=== PATIENT | female | born 1940 | race African-American/Black ===

== ENCOUNTER 2017-02-25 13:02 | Emergency (ER) | payer MEDICARE ==
[~2017-02-25] VITALS: Ht 167.6 cm; Wt 63.5 kg
[~2017-02-25 13:02] MED LIST: AMLO5TAB2 PO; MET50T PO
[2017-02-25] MEDS ORDERED: SILVER SULFADIAZINE 1 % TOPICAL CREAM 50GM TOP ONE (19:45)
[2017-02-25 21:45] VITALS: BP 139/88
== END 2017-02-25 22:03 | disposition home or self-care (01) ==
LOC: EDBD 13:02 → ER 13:07
DX: T22.10XA Burn of first degree of shoulder and upper limb, except wrist and hand, unspecified site, initial encounter (principal); T21.12XA Burn of first degree of abdominal wall, initial encounter; E11.9 Type 2 diabetes mellitus without complications; I10 Essential (primary) hypertension; Z86.73 Personal history of transient ischemic attack (TIA), and cerebral infarction without residual deficits; X12.XXXA Contact with other hot fluids, initial encounter; Y93.89 Activity, other specified; Y92.89 Other specified places as the place of occurrence of the external cause; Y99.8 Other external cause status
CPT/HCPCS: 16000; 93005

== ENCOUNTER 2017-03-17 00:49 | Inpatient (IN) | payer MEDICARE ==
[~2017-03-17] VITALS: Ht 157.5 cm; Wt 63.7 kg
[2017-03-17] MEDS ORDERED: NITROGLYCERIN 50MG/250ML 250 ML IV ONE (06:45)
[2017-03-17] MEDS ORDERED: NITROGLYCERIN 0.4 MG SL TAB SL ONE ×3 (07:00→08:15)
[2017-03-17] MEDS ORDERED: HEPARIN SODIUM (PORCINE) 5000 UNITS/ML 1ML VIAL SC ONE (07:00)
[2017-03-17] MEDS ORDERED: ASPirin 325 MG TAB PO ONE (07:00)
[2017-03-17] MEDS ORDERED: HEPARIN SODIUM (PORCINE) 5000 UNITS/ML 1ML VIAL IV ONE (07:15)
[2017-03-17 08:24] LABS: Basophils # (auto) 0 uL; Eosinophils # (auto) 0 uL; Eosinophils % (auto) 1.5 % (0.0-7.0); Hematocrit 43.6 % (36.0-46.0); Hemoglobin 14.1 g/dL (12.2-16.2); Lymphocytes # (auto) 0.9 uL; Lymphocytes % (auto) 27.6 % (10.0-50.0); Mean Corpuscular Hemoglobin 28.2 pg (28.0-32.0); Mean Corpuscular Hgb Conc. 32.4 g/dL (32.0-36.0); Mean Corpuscular Volume 87.1 fL (80.0-100.0); Monocytes # (auto) 0.2 uL; Monocytes % (auto) 7.8 % (0.0-12.0); Neutrophils # (auto) 1.9 uL; Neutrophils % (auto) 62.1 % (37.0-80.0); Nucleated Red Blood Cells % 0.1 %; Platelet Count (auto) 226 10^3/uL (140-450); Red Blood Cells 5.01 10^6/uL (4.0-5.20); White Blood Cell 3.1 10^3/uL (4.4-10.8)
[2017-03-17] MEDS ORDERED: LABETALOL HCL 5 MG/ML ML 20ML VIAL IV ONE (08:45)
[2017-03-17] MEDS ORDERED: SODIUM CHLORIDE 0.9% 1,000 ML IV ONE (08:45)
[2017-03-17 08:50] LABS: INR 0.99 (0.9-1.15); Prothrombin Time 10.8 sec (9.37-12.3)
[2017-03-17] MEDS ORDERED: METOPROLOL SUCCINATE XL 50 MG TAB PO ONE (09:00)
[2017-03-17] MEDS ORDERED: NITROGLYCERIN 0.4MG/HR TOPICAL PATCH TD ONE (09:00)
[2017-03-17] MEDS ORDERED: ONDANSETRON HCL 4 MG/2 ML VIAL IV PRN (10:15)
[2017-03-17] MEDS ORDERED: MORPHINE SULFATE 10 MG/ML INJ 1ML SDV IV PRN ×2 (10:15)
[2017-03-17] MEDS ORDERED: NITROGLYCERIN 0.4 MG SL TAB SL PRN (10:15)
[2017-03-17] MEDS ORDERED: DOCUSATE SOD 100 MG CAP PO PRN (10:15)
[2017-03-17] MEDS ORDERED: ACETAMINOPHEN 325 MG TAB PO PRN (10:15)
[2017-03-17] MEDS ORDERED: TEMAZEPAM 15 MG CAP PO PRN (10:15)
[2017-03-17] MEDS ORDERED: HYDROcodone-ACET 5/325MG TAB PO PRN (10:15)
[2017-03-17] MEDS ORDERED: cloNIDine HCL 0.1 MG TAB PO PRN (10:30)
[2017-03-17] MEDS: SODIUM CHLORIDE 0.9% 1,000 ML IV SCH (11:03)
[2017-03-17 11:33] LABS: Albumin 3.6 g/dL (3.4-5.0); BUN/Creatinine Ratio 33.3; Bilirubin, Total 0.4 mg/dL (0.2-1.0); Calcium 9.3 mg/dL (8.5-10.1); Magnesium 2.2 mg/dL (1.6-2.6); Potassium 3.5 mmol/L (3.5-5.1); Total Protein 8.7 g/dL (6.4-8.2)
[2017-03-17] MEDS ORDERED: FAMO-12 PO (11:44)
[2017-03-17] MEDS ORDERED: APIX5TAB PO (11:44)
[2017-03-17] MEDS ORDERED: ATOR1TAB PO (11:44)
[2017-03-17] MEDS ORDERED: LEVO-28 PO (11:44)
[2017-03-17] MEDS: Boost Glucose Control 8 Ounces PO SCH ×2 (12:00→18:27)
[2017-03-17 15:07] VITALS: BP 165/96
[2017-03-17 17:21] VITALS: BP 169/103
[2017-03-17] MEDS: SUCRALFATE 1 GM/10 ML ORAL SUSP PO SCH ×2 (18:02→22:00)
[2017-03-17 18:24] LABS: Hematocrit 41.5 % (36.0-46.0); Hemoglobin 13.5 g/dL (12.2-16.2)
[2017-03-17 20:00] VITALS: BP 111/56
[2017-03-17 21:21] VITALS: BP 164/105
[2017-03-17] MEDS ORDERED: FAMOTIDINE 20 MG TAB PO SCH (22:00)
[2017-03-18] MEDS: SODIUM CHLORIDE 0.9% 1,000 ML IV SCH (02:50)
[2017-03-18 05:03] VITALS: BP 158/76
[2017-03-18] MEDS: SUCRALFATE 1 GM/10 ML ORAL SUSP PO SCH ×3 (06:30→17:00)
[2017-03-18 07:51] LABS: Basophils # (auto) 0 uL; Basophils % (auto) 1.2 % (0.0-2.0); Eosinophils # (auto) 0.1 uL; Eosinophils % (auto) 3.4 % (0.0-7.0); Hematocrit 36.5 % (36.0-46.0); Lymphocytes # (auto) 0.9 uL; Lymphocytes % (auto) 32.8 % (10.0-50.0); Mean Corpuscular Hemoglobin 28.5 pg (28.0-32.0); Mean Corpuscular Hgb Conc. 32.8 g/dL (32.0-36.0); Mean Corpuscular Volume 86.9 fL (80.0-100.0); Monocytes # (auto) 0.2 uL; Neutrophils # (auto) 1.5 uL; Neutrophils % (auto) 53.6 % (37.0-80.0); Nucleated Red Blood Cells % 0.2 %; Platelet Count (auto) 227 10^3/uL (140-450); Red Blood Cells 4.21 10^6/uL (4.0-5.20); Red Cell Distribution Width 14.9 % (11.8-14.3); White Blood Cell 2.7 10^3/uL (4.4-10.8)
[2017-03-18] MEDS: Boost Glucose Control 8 Ounces PO SCH ×2 (08:00→12:00)
[2017-03-18 08:37] LABS: Bilirubin, Total 0.4 mg/dL (0.2-1.0); Calcium 8.8 mg/dL (8.5-10.1); Potassium 3.5 mmol/L (3.5-5.1); Total Protein 7.3 g/dL (6.4-8.2)
[2017-03-18 09:16] VITALS: BP 147/84
[2017-03-18] MEDS ORDERED: amLODIPine BESYLATE 5 MG TAB PO SCH (10:00)
[2017-03-18] MEDS ORDERED: METOPROLOL SUCCINATE XL 50 MG TAB PO SCH (10:00)
[2017-03-18] MEDS ORDERED: PANTOPRAZOLE 40 MG TAB PO SCH (10:00)
[2017-03-18] MEDS ORDERED: MULTIPLE VITAMIN TAB PO SCH (10:00)
[2017-03-18] MEDS ORDERED: NITROGLYCERIN 0.4MG/HR TOPICAL PATCH TD SCH (10:00)
[2017-03-18 14:01] VITALS: BP 135/88
[2017-03-18 16:28] VITALS: BP 149/77
[2017-03-18 16:38] VITALS: BP 149/77
[2017-03-18 17:45] VITALS: BP 149/77
== END 2017-03-18 17:45 | disposition home health service (06) | DRG 377 ==
LOC: ER 00:49 → EDBD 00:49 → TELE 00:50 → TELE-CENTR 11:26
PROVIDERS: ADMIT Internal Medicine; ATTEND Internal Medicine
DX: K92.0 Hematemesis (principal); G93.41 Metabolic encephalopathy; L89.159 Pressure ulcer of sacral region, unspecified stage; E44.0 Moderate protein-calorie malnutrition; E11.21 Type 2 diabetes mellitus with diabetic nephropathy; D68.69 Other thrombophilia; E11.22 Type 2 diabetes mellitus with diabetic chronic kidney disease; R65.10 Systemic inflammatory response syndrome (SIRS) of non-infectious origin without acute organ dysfunction; I48.92 Unspecified atrial flutter; J98.11 Atelectasis; I69.351 Hemiplegia and hemiparesis following cerebral infarction affecting right dominant side; E11.51 Type 2 diabetes mellitus with diabetic peripheral angiopathy without gangrene; I48.91 Unspecified atrial fibrillation; N18.3 Chronic kidney disease, stage 3 (moderate); K21.9 Gastro-esophageal reflux disease without esophagitis; K42.9 Umbilical hernia without obstruction or gangrene; E83.41 Hypermagnesemia; T22.00XA Burn of unspecified degree of shoulder and upper limb, except wrist and hand, unspecified site, initial encounter; T21.02XA Burn of unspecified degree of abdominal wall, initial encounter; I70.0 Atherosclerosis of aorta; I70.90 Unspecified atherosclerosis; X08.8XXA Exposure to other specified smoke, fire and flames, initial encounter; I13.10 Hypertensive heart and chronic kidney disease without heart failure, with stage 1 through stage 4 chronic kidney disease, or unspecified chronic kidney disease; I70.201 Unspecified atherosclerosis of native arteries of extremities, right leg; Z86.711 Personal history of pulmonary embolism; Z68.25 Body mass index [BMI] 25.0-25.9, adult; Y93.89 Activity, other specified; Y92.89 Other specified places as the place of occurrence of the external cause; Y99.8 Other external cause status
CPT/HCPCS: 36415; 70450; 71045; 71111; 73502; 74176; 80053; 83036; 83735; 83880; 84443; 84484; 85014; 85018; 85025; 85610; 85730; 87040; 93005; 96361; 96374

== ENCOUNTER 2017-07-19 22:22 | Inpatient (IN) | payer MEDICARE, MEDICAID ==
[~2017-07-19] VITALS: Ht 154.9 cm; Wt 62.9 kg
[~2017-07-19 22:22] MED LIST changes: +APIX5TAB PO; +ATOR1TAB PO; +FAMO-12 PO; +LEVO-28 PO
[2017-07-20 00:48] LABS: Hematocrit 42.7 % (36.0-46.0); Hemoglobin 14.2 g/dL (12.2-16.2); Mean Corpuscular Hemoglobin 28.8 pg (28.0-32.0); Mean Corpuscular Hgb Conc. 33.2 g/dL (32.0-36.0); Mean Corpuscular Volume 86.7 fL (80.0-100.0); Platelet Count (auto) 209 10^3/uL (140-450); Red Blood Cells 4.92 10^6/uL (4.0-5.20); Red Cell Distribution Width 15.2 % (11.8-14.3); White Blood Cell 4.3 10^3/uL (4.4-10.8)
[2017-07-20 00:50] LABS: Band Neutrophils % (manual) 0; Basophils % (manual) 0 (0.0-2.0); Blast Cells 0; Metamyelocytes % 0; Myelocytes % 0; Promyelocytes % 0; Reactive Lymphocytes 0
[2017-07-20 01:00] LABS: Albumin 3.1 g/dL (3.4-5.0); Anion Gap 9 (5-15); BUN/Creatinine Ratio 34.1; Blood Urea Nitrogen 14 mg/dL (7-18); Calcium 8.7 mg/dL (8.5-10.1); Carbon Dioxide 21 mmol/L (21-32); Chloride 111 mmol/L (98-107); GFR African American 193 mL/min; GFR Non-African American 160 mL/min; Glucose 100 mg/dL (74-106); Magnesium 2.2 mg/dL (1.6-2.6); Potassium 3.3 mmol/L (3.5-5.1); Sodium 141 mmol/L (136-145)
[2017-07-20 01:02] LABS: Alanine Aminotransferase 11 U/L (13-56); Alkaline Phosphatase 71 U/L (45-117); Aspartate Aminotransferase 10 U/L (15-37); Bilirubin, Total 0.2 mg/dL (0.2-1.0); Total Protein 8.1 g/dL (6.4-8.2)
[2017-07-20 01:07] LABS: Eosinophils % (manual) 2 (0-7); Lymphocytes % (manual) 36 (10.0-50.0); Monocytes % (manual) 8 (0-12)
[2017-07-20 02:18] LABS: Urine Bacteria FEW /hpf (None Seen); Urine Blood Negative /uL (Negative); Urine Mucus FEW (None Seen); Urine Specific Gravity 1.015 (1.001-1.035); Urine WBC 145 /hpf (0 - 5)
[2017-07-20 03:01] LABS: INR 0.98 (0.9-1.15); Partial Thromboplastin Time 27.8 sec (23.78-33.04); Prothrombin Time 10.5 sec (9.27-12.13)
[2017-07-20] MEDS ORDERED: ONDANSETRON HCL 4 MG/2 ML VIAL IV PRN (06:45)
[2017-07-20] MEDS ORDERED: LORazepam 2MG/ML-1ML VIAL IV PRN (06:45)
[2017-07-20] MEDS ORDERED: ACETAMINOPHEN 500 MG TAB PO PRN (06:45)
[2017-07-20] MEDS ORDERED: POTASSIUM CHL 10% (20 MEQ/15ML) 15ml ORAL SOLN PO ONE (06:45)
[2017-07-20] MEDS ORDERED: cefTRIAXone 1GM/10ml IVPUSH 10 ML IV ONE (08:00)
[2017-07-20] MEDS: ENOXAPARIN SOD 40 MG/0.4 ML SYRINGE SC SCH (12:22)
[2017-07-20] MEDS ORDERED: cloNIDine HCL 0.1 MG TAB PO ONE (12:30)
[2017-07-20 13:00] VITALS: BP 173/87
[2017-07-20] MEDS: HYDROcodone-ACET 5/325MG TAB PO PRN (13:21)
[2017-07-20] MEDS ORDERED: AMLO5TAB2 PO (15:10)
[2017-07-20] MEDS ORDERED: PANT40TA2 PO (15:10)
[2017-07-20] MEDS ORDERED: MET50T PO (15:10)
[2017-07-20] MEDS ORDERED: SUCR1TAB38 PO (15:10)
[2017-07-20] MEDS ORDERED: cloNIDine HCL 0.1 MG TAB PO PRN (15:15)
[2017-07-20 17:00] VITALS: BP 131/71
[2017-07-20 22:00] VITALS: BP 113/66
[2017-07-20] MEDS: METOPROLOL TARTRATE 50 MG TAB PO SCH (22:46)
[2017-07-21 05:08] VITALS: BP 137/73
[2017-07-21 05:57] LABS: Basophils # (auto) 0 uL; Basophils % (auto) 1.4 % (0.0-2.0); Eosinophils # (auto) 0.1 uL; Eosinophils % (auto) 3.7 % (0.0-7.0); Hematocrit 40.1 % (36.0-46.0); Hemoglobin 13.3 g/dL (12.2-16.2); Lymphocytes # (auto) 1.1 uL; Lymphocytes % (auto) 39.6 % (10.0-50.0); Mean Corpuscular Hgb Conc. 33.1 g/dL (32.0-36.0); Mean Corpuscular Volume 87.6 fL (80.0-100.0); Monocytes # (auto) 0.2 uL; Monocytes % (auto) 6.8 % (0.0-12.0); Neutrophils # (auto) 1.3 uL; Neutrophils % (auto) 48.5 % (37.0-80.0); Nucleated Red Blood Cells % 0.2 %; Platelet Count (auto) 231 10^3/uL (140-450); Red Blood Cells 4.58 10^6/uL (4.0-5.20); Red Cell Distribution Width 15.2 % (11.8-14.3); White Blood Cell 2.7 10^3/uL (4.4-10.8)
[2017-07-21] MEDS: METOPROLOL TARTRATE 50 MG TAB PO SCH ×2 (08:54→22:33)
[2017-07-21] MEDS: cefTRIAXone 1GM/10ml IVPUSH 10 ML IV SCH (08:54)
[2017-07-21] MEDS: ENOXAPARIN SOD 40 MG/0.4 ML SYRINGE SC SCH (08:54)
[2017-07-21 09:00] VITALS: BP 140/70
[2017-07-21] MEDS: HYDROcodone-ACET 5/325MG TAB PO PRN (12:49)
[2017-07-21 13:00] VITALS: BP 135/68
[2017-07-21 17:00] VITALS: BP 161/79
[2017-07-21 22:18] VITALS: BP 100/59
[2017-07-22 05:00] VITALS: BP 104/57
[2017-07-22] MEDS: cefTRIAXone 1GM/10ml IVPUSH 10 ML IV SCH (08:26)
[2017-07-22] MEDS: HYDROcodone-ACET 5/325MG TAB PO PRN (08:26)
[2017-07-22 09:23] VITALS: BP 134/77
[2017-07-22] MEDS: ENOXAPARIN SOD 40 MG/0.4 ML SYRINGE SC SCH (10:00)
[2017-07-22] MEDS: METOPROLOL TARTRATE 50 MG TAB PO SCH (10:42)
[2017-07-22 13:59] VITALS: BP 163/89
[2017-07-22 14:23] VITALS: BP 134/77
== END 2017-07-22 15:30 | disposition home or self-care (01) | DRG 690 ==
LOC: EDBD 22:22 → ER 22:30 → OVERFLOW 22:31 → WEST WING 07-20 10:10
PROVIDERS: ADMIT Nurse Practitioner Family; ATTEND Nurse Practitioner Family
DX: N39.0 Urinary tract infection, site not specified (principal); E11.22 Type 2 diabetes mellitus with diabetic chronic kidney disease; I48.91 Unspecified atrial fibrillation; I69.351 Hemiplegia and hemiparesis following cerebral infarction affecting right dominant side; E86.0 Dehydration; I69.320 Aphasia following cerebral infarction; I12.9 Hypertensive chronic kidney disease with stage 1 through stage 4 chronic kidney disease, or unspecified chronic kidney disease; E87.6 Hypokalemia; K21.9 Gastro-esophageal reflux disease without esophagitis; N18.9 Chronic kidney disease, unspecified; Z79.01 Long term (current) use of anticoagulants; Z79.84 Long term (current) use of oral hypoglycemic drugs; Z86.711 Personal history of pulmonary embolism; Z80.3 Family history of malignant neoplasm of breast
CPT/HCPCS: 36415; 51702; 70450; 71045; 80053; 81001; 83735; 83880; 84484; 85007; 85025; 85027; 85379; 85610; 85730; 87040; 87086; 87088; 87186; 93005; 96374

== ENCOUNTER 2018-12-10 08:00 | Inpatient (IN) | payer MEDICARE, MEDICAID ==
[~2018-12-10] VITALS: Ht 162.6 cm; Wt 79.1 kg
[~2018-12-10 08:00] MED LIST changes: +AMLO5TAB15 PO; -AMLO5TAB2 PO; -ATOR1TAB PO; -FAMO-12 PO; -LEVO-28 PO; +PANT40TA2 PO; +SUCR1TAB38 PO
[2018-12-10] MEDS ORDERED: SODIUM CHLORIDE 0.9% 1,000 ML IV ONE ×3 (08:39→17:15)
[2018-12-10] MEDS ORDERED: ASPirin 81 mg TAB PO ONE (08:45)
[2018-12-10 08:54] LABS: Basophils # (auto) 0 uL; Basophils % (auto) 0.7 % (0.0-2.0); Eosinophils # (auto) 0 uL; Eosinophils % (auto) 0.3 % (0.0-7.0); Hematocrit 49.8 % (36.0-46.0); Hemoglobin 16.3 g/dL (12.2-16.2); Lymphocytes # (auto) 0.8 uL; Lymphocytes % (auto) 15.6 % (10.0-50.0); Mean Corpuscular Hemoglobin 28.5 pg (28.0-32.0); Mean Corpuscular Hgb Conc. 32.8 g/dL (32.0-36.0); Mean Corpuscular Volume 86.9 fL (80.0-100.0); Monocytes # (auto) 0.3 uL; Monocytes % (auto) 5.9 % (0.0-12.0); Neutrophils # (auto) 3.9 uL; Neutrophils % (auto) 77.5 % (37.0-80.0); Nucleated Red Blood Cells % 0.1 %; Platelet Count (auto) 279 10^3/uL (140-450); Red Blood Cells 5.73 10^6/uL (4.0-5.20); Red Cell Distribution Width 15.3 % (11.8-14.3); White Blood Cell 5.1 10^3/uL (4.4-10.8)
[2018-12-10 09:07] LABS: Alanine Aminotransferase 11 U/L (13-56); Albumin 3.6 g/dL (3.4-5.0); Anion Gap 6 (5-15); Aspartate Aminotransferase 10 U/L (15-37); Blood Urea Nitrogen 13 mg/dL (7-18); Calcium 9.9 mg/dL (8.5-10.1); Carbon Dioxide 26 mmol/L (21-32); Chloride 104 mmol/L (98-107); Glucose 139 mg/dL (74-106); Potassium 4.1 mmol/L (3.5-5.1); Sodium 136 mmol/L (136-145)
[2018-12-10 09:12] LABS: Alkaline Phosphatase 83 U/L (45-117); Bilirubin, Total 0.5 mg/dL (0.2-1.0); GFR African American 120 mL/min; GFR Non-African American 99 mL/min; Total Protein 9.3 g/dL (6.4-8.2)
[2018-12-10 09:29] LABS: Urine Bacteria FEW /hpf (None Seen); Urine Blood 1+ /uL (Negative); Urine Mucus FEW (None Seen); Urine Specific Gravity 1.021 (1.001-1.035); Urine WBC 933 /hpf (0 - 5); Urine WBC Clumps PRESENT /hpf (None Seen)
[2018-12-10] MEDS: cloNIDine 0.2 mg/24hr 7DAY PATCH TD ONE ×2 (09:45→11:02)
[2018-12-10] MEDS ORDERED: LABETALOL HCL 5 MG/ML ML 20ML VIAL IV ONE ×2 (09:45→09:49)
[2018-12-10 10:32] LABS: INR 0.97 (0.9-1.15); Partial Thromboplastin Time 28.6 sec (23.64-32.05)
[2018-12-10] MEDS ORDERED: hydrALAZINE HCL 20 MG/ML VL ONE (11:52)
[2018-12-10] MEDS ORDERED: hydrALAZINE HCL 20 MG/ML VL IV ONE (12:00)
[2018-12-10] MEDS ORDERED: LORazepam 2MG/ML-1ML VIAL ONE (12:05)
[2018-12-10] MEDS: LORazepam 2MG/ML-1ML VIAL IV ONE ×2 (12:22→12:23)
[2018-12-10] MEDS ORDERED: cefTRIAXone 1GM/50ML D5W 50 ML IV ONE (14:00)
[2018-12-10] MEDS: SODIUM CHLORIDE 0.9% 1,000 ML IV SCH ×2 (16:40→17:16)
[2018-12-10] MEDS ORDERED: NITROGLYCERIN 0.4 MG SL TAB SL PRN (16:45)
[2018-12-10] MEDS ORDERED: HYDROcodone-ACET 5/325MG TAB PO PRN (16:45)
[2018-12-10] MEDS ORDERED: MORPHINE SULF INJ 2 MG/ML SYRINGE 1ML IV PRN ×2 (16:45)
[2018-12-10] MEDS ORDERED: ONDANSETRON HCL 4 MG/2 ML VIAL IV PRN (16:45)
[2018-12-10] MEDS ORDERED: ACETAMINOPHEN 500 MG TAB PO PRN (16:45)
[2018-12-10 20:50] VITALS: BP 131/78
--- NOTE | 2018-12-10 20:50 | NUR ---
Telemetry admit from ER WERNER ROBERTS admitted to Telemetry; SBAR received after this RN called ER. Patient presenting with ALOC; unresponsive to voice, gentle touch or sternal rub. Pt's VS are WNL and respiratory effort WNL with HOB in semi-Serna's position Unabled to orient pt to unit or surroundings. Sitter at bedside. Patient now on continuous telemetry monitoring, tele box #51 and telemetry reading on arrival to unit is sinus arrythmia in low 70s. Patient placed on bedside oxygen @ 2lpm, weighed by bedscale. Bed in low position and locked. Pt arrived with mittens on both hands.
[2018-12-10] MEDS: METOPROLOL TARTRATE 50 MG TAB PO SCH (22:00)
[2018-12-10] MEDS: DOCUSATE SOD 100 MG CAP PO SCH (22:00)
[2018-12-10 22:47] VITALS: BP 134/78
--- NOTE | 2018-12-11 00:13 | NUR ---
Reassessed LOC to determine if safe to give p.o. meds; pt cont to move in small amounts with being disturbed with passive movement by LOGISTICS MANAGEMENT SPECIALIST restrike hammer operator, but does not open eyes or rouse to attempt verbalization. PO meds held. BP 142/75 and HR 81.
[2018-12-11 00:16] VITALS: BP 142/75
[2018-12-11 05:17] VITALS: BP 130/67
--- NOTE | 2018-12-11 06:05 | NUR ---
Lab in at bedside. Pt breathing easily and bed flat. LEAD BUSINESS ANALYST, Rain and batch roller operator state pt has awakened. Pt not opening eyes to this nurse's voice or LEAD BUSINESS ANALYST's. Then pt briefly opened eyes, mumbled not fully opening mouth then resumed sleep.
[2018-12-11 07:06] LABS: Basophils # (auto) 0 uL; Eosinophils # (auto) 0.1 uL; Eosinophils % (auto) 1.6 % (0.0-7.0); Hemoglobin 14.4 g/dL (12.2-16.2); Lymphocytes # (auto) 1.2 uL; Mean Corpuscular Hemoglobin 28.5 pg (28.0-32.0); Mean Corpuscular Hgb Conc. 32.6 g/dL (32.0-36.0); Mean Corpuscular Volume 87.4 fL (80.0-100.0); Monocytes # (auto) 0.4 uL; Monocytes % (auto) 10.9 % (0.0-12.0); Neutrophils # (auto) 2.2 uL; Neutrophils % (auto) 55.5 % (37.0-80.0); Nucleated Red Blood Cells % 0.1 %; Platelet Count (auto) 245 10^3/uL (140-450); Red Blood Cells 5.04 10^6/uL (4.0-5.20); Red Cell Distribution Width 15.6 % (11.8-14.3)
[2018-12-11 07:21] LABS: Potassium 4.1 mmol/L (3.5-5.1)
[2018-12-11 07:32] LABS: Calcium 9.6 mg/dL (8.5-10.1)
--- NOTE | 2018-12-11 08:05 | NUR ---
OPENING SHIFT NOTE: PATIENT LYING IN BED, BREATHING EVEN AND UNLABORED. PATIENT UNABLE TO VERBALIZE. PATIENT RESPONDS TO TOUCH/PAINFUL STIMULI. ABLE TO OPEN EYES, PUPILS +2 EQUAL AND REACTIVE TO LIGHT. PATIENT NOTED TO HAVE A STRONGER ACCOUNT COLLECTOR ON LEFT SIDE HAND SQUEEZE. PATIENT UNABLE TO OBEY COMMANDS. BEDSIDE BREAKFAST TRAY REMOVED BY THIS RN, FOR SAFETY. BLACKMAN HUNG BELOW BLADDER, FREE OF KINKS. BED IN LOWEST LOCKED POSITION, SITTER AT BEDSIDE, WILL CONTINUE TO MONITOR.
[2018-12-11] MEDS: SODIUM CHLORIDE 0.9% 1,000 ML IV SCH ×2 (08:40→10:21)
[2018-12-11 09:00] VITALS: BP 157/86
[2018-12-11] MEDS: FAMOTIDINE 20 MG TAB PO SCH (10:00)
[2018-12-11] MEDS: METOPROLOL TARTRATE 50 MG TAB PO SCH ×2 (10:00→22:30)
[2018-12-11] MEDS: DOCUSATE SOD 100 MG CAP PO SCH ×2 (10:00→22:30)
[2018-12-11] MEDS: PANTOPRAZOLE 40 MG TAB PO SCH (10:00)
[2018-12-11] MEDS: amLODIPine BESYLATE 5 MG TAB PO SCH (10:00)
[2018-12-11] MEDS: APIXABAN 5 MG TAB PO SCH (10:00)
--- NOTE | 2018-12-11 10:21 | NUR ---
MORNING MEDS HELD: PATIENT UNABLE TO TAKE PO MEDS AT THIS TIME. UNABLE TO SWALLOW OR FOLLOW COMMANDS.
[2018-12-11] MEDS: cefTRIAXone 1GM/50ML D5W 50 ML IV SCH (10:38)
[2018-12-11] MEDS: LABETALOL HCL 5 MG/ML ML 20ML VIAL IV PRN (10:39)
--- NOTE | 2018-12-11 10:39 | NUR ---
IV LABETALOL GIVEN 10MG ORDERED FOR SBP>150.
--- NOTE | 2018-12-11 12:30 | NUR ---
WOUND CARE NOTE: IN TO SEE PATIENT AT THIS TIME PER WOUND CARE CONSULT REQUEST. PATIENT WAS ADMITTED TO [facility] WITH DIAGNOSIS OF HYPERTENSIVE CRISIS. CURRENT JULIO CESAR SCORE IS 13. PATIENT IS NON VERBAL, S/P OLD CVA. SHE IS MAX ASSIST FOR HER ADL'S, INCLUDING TURNING/REPOSITIONING. PATIENT HAS SITTER AT BEDSIDE. SKIN IS NOTED TO BE MELO, BLANCHABLE. NO OPEN WOUNDS NOTED. GRISEL FOAM BOOTS APPLIED TO BILATERAL FEET/ANKLES PREVENTATIVE. SPECIALTY AIR MATTRESS ORDERED AT THIS TIME. PATIENT TO BE PLACED, PENDING DELIVERY BY [facility]. OPTIFOAM GENTLE SACRAL DRESSING HAS BEEN PLACED TO UPPER MEDIAL SACRUM PREVENTATIVE. RECOMMEND: FREQUENT TURN SCHEDULE Q 2 HOURS, PRN CONDITION PERMITS, WITH PRESSURE REDISTRIBUTION USING PILLOWS/WEDGES, BID/PRN APPLICATION MOISTURE BARRIER CREAM, OPTIFOAM GENTLE SACRAL DRESSING, GRISEL BOOTS TO BILATERAL FEET/HEELS, SPECIALTY AIR MATTRESS, DIETARY CONSULT, CONTINUED MONITORING BY WOUND CARE TEAM.
[2018-12-11 13:00] VITALS: BP 135/49
--- NOTE | 2018-12-11 13:18 | NUR ---
FAMILY AT BEDSIDE PHONE NUMBERS OBTAINED: [phone]. FAMILY ATTEMPTING TO FEED PATIENT. PATIENT SHAKING HEAD NO, AND REFUSING. THIS RN REMOVED TRAY, AND INFORMED FAMILY ABOUT SWALLOW EVALUATION TO BE DONE PRIOR TO FEEDING PATIENT FOR SAFETY. FAMILY VERBALIZED UNDERSTANDING.
--- NOTE | 2018-12-11 16:50 | NUR ---
assessment re: ss consult family not present, may need education and support Patient is a 78 year old female who is aphasic. Prior to admission patient lived home with family and functioned with assistance. I informed Ashley of patients ss consult. Per patients daughter Ashley she feels patient needs a SNF on discharge post discharge. Per Ashley she is requesting [facility]. Patient has a wheelchair for home use. Patients PCP is Dr Becerra. I informed Ashley she has a right to speak to a social media campaign manager regarding all care. I informed Ashley she has a right to participate in any and all discharge planning. Ashley is aware of visiting hours on the hospital floor. I informed Ashley she has a right to privacy. Patient does not have a POA and advanced directive. I have offered Ashley information on POA and advanced directives. I informed Ashley the advantages and benefits of having an Advanced Directive. Ashley verbalized understanding and agreed to discharge plan. Addendum: 12/11/18 at 1655 by Yina BALDERAS Amended: Links added.
[2018-12-11 17:00] VITALS: BP 155/78
--- NOTE | 2018-12-11 18:20 | NUR ---
FAMILY PHONE NUMBERS: AUNT: [phone] DAUGHTERSHELBIE: [phone] GRANDDAUGHTER: [phone]
--- NOTE | 2018-12-11 18:25 | NUR ---
CLOSING SHIFT NOTE: PATIENT RESTING IN BED. NO SIGNS OF DISTRESS NOTED. SITTER AT BEDSIDE. BLACKMAN HUNG BELOW BLADDER, DRAINING. BED IN LOWEST LOCKED POSITION. WILL ENDORSE CARE TO NOC RN.
[2018-12-11] MEDS: SOD CHL 0.45% WITH 20MEQ KCL 1,000 ML IV SCH (18:44)
--- NOTE | 2018-12-11 19:14 | NUR ---
CARE ENDORSED TO HEATHER REYES.
--- NOTE | 2018-12-11 19:55 | NUR ---
open note assumed care of pt. upon entering pt awake and alert. sitting semi fowlers in bed. pt has sitter at bedside. pt has 2L nc no distress noted. pt non verbal but shakes head for no when asked about pain. pt bed locked, low and 2x rails up. pt on air mattress, bilat isabela boots in place. culp in place draining clear yellow. all light in reach, encouraged pt and sitter to call as needed. this nurse will round q1hr and prn.
[2018-12-11 21:14] VITALS: BP 142/70
[2018-12-12 05:13] VITALS: BP 132/88
--- NOTE | 2018-12-12 08:00 | NUR ---
OPENING SHIFT NOTE: PATIENT RESTING IN BED, SITTER AT BEDSIDE, EVEN AND UNLABORED RESPIRATIONS NOTED. BLACKMAN HUNG BELOW BLADDER, FREE OF KINKS, DRAINING. PATIENT ABLE TO OPEN EYES, AND RESPOND TO VOICE. UNABLE TO FOLLOW COMMANDS. WILL CONTINUE TO MONITOR.
[2018-12-12 08:38] VITALS: BP 144/82
[2018-12-12] MEDS: cefTRIAXone 1GM/50ML D5W 50 ML IV SCH (09:56)
[2018-12-12] MEDS: DOCUSATE SOD 100 MG CAP PO SCH ×2 (10:00→22:11)
[2018-12-12] MEDS: METOPROLOL TARTRATE 50 MG TAB PO SCH ×2 (10:00→22:11)
[2018-12-12] MEDS: FAMOTIDINE 20 MG TAB PO SCH (10:00)
[2018-12-12] MEDS: APIXABAN 5 MG TAB PO SCH (10:00)
[2018-12-12] MEDS: PANTOPRAZOLE 40 MG TAB PO SCH (10:00)
[2018-12-12] MEDS: amLODIPine BESYLATE 5 MG TAB PO SCH (10:00)
--- NOTE | 2018-12-12 10:47 | NUR ---
MD BENAVIDEZ ROUNDING: THIS RN INFORMED MD BENAVIDEZ OF PO MEDICATIONS HELD AGAIN TODAY. THIS RN SUGGESTED CONVERTING TO IV MEDICATIONS IF POSSIBLE UNTIL SWALLOW EVAL COMPLETED. INFORMED MD OF PHARMACY'S CALL REGARDING ELIQUIS BEING HELD. AWARE.
--- NOTE | 2018-12-12 11:04 | NUR ---
RECEIVED CALL BACK FORM ROD SPEECH THERAPIST: PLAN IS TO COME IN THIS AFTERNOON OR SOON POSSIBLE.
--- NOTE | 2018-12-12 12:05 | NUR ---
NUTRITION CONSULT/ASSESSMENT NOTES Please refer to link notes of nutrition screen form filed under the intervention section of the plan of care for further details. Est. Needs: 1450 kcal to 1750 kcal (25-30 kcal/kgBW), 59 gms to 71 gms pro (1.0-1.2 gms/kgBW). Will continue to monitor pertinent labs and reassess nutrient need prn Thank you for this consult. Addendum: 12/12/18 at [address] Amended: Links added.
--- NOTE | 2018-12-12 12:11 | NUR ---
re-assessment Per consult please verify daughters phone number. Ashley cespedes daughter's phone number is [phone] good number. Addendum: 12/12/18 at 1212 by Yina Rodriguez Amended: Links added.
[2018-12-12] MEDS: SOD CHL 0.45% WITH 20MEQ KCL 1,000 ML IV SCH (14:03)
[2018-12-12 14:24] VITALS: BP 151/81
[2018-12-12] MEDS: LABETALOL HCL 5 MG/ML ML 20ML VIAL IV PRN ×3 (15:11→21:20)
--- NOTE | 2018-12-12 16:13 | NUR ---
SPEECH THERAPIST AT BEDSIDE: ORDER FOR PUREE DIET. OKAY TO GIVE THIN LIQUIDS TOLERATED. PATIENT SHOWS NO SIGNS OF SWALLOWING IMPAIRMENT, BUT MOTIVATION TO EAT IS LOW. PATIENT RAISES LEFT ARM TO ATTEMPT TO PUSH FOOD AWAY, AND MOANS IN REFUSAL.
--- NOTE | 2018-12-12 16:35 | NUR ---
SWALLOW EVALUATED. FAMILY AND NURSE PRESENT. PATIENT RESISTED EVALUATION, EVENTUALLY TOLERATING PUREE DIET TEXTURE WITH THIN LIQUIDS WITH NO OVERT SIGNS OR SYMPTOMS OF ASPIRATION. MAX CUEING AND ENCOURAGEMENT FOR PO INTAKE.
[2018-12-12 16:51] VITALS: BP 185/93
--- NOTE | 2018-12-12 18:45 | NUR ---
CLOSING SHIFT NOTE: PATIENT RESTING IN BED, SITTER ASSISTING WITH DINNER. PATIENT WILLING TO DRINK MILK, BUT IS REFUSING MOST ON THE DINNER ENTREES. BED IN LOWEST LOCKED POSITION, NOTED NO SIGNS OF DISTRESS. WILL ENDORSE CARE TO NOC RN.
--- NOTE | 2018-12-12 19:12 | NUR ---
CARE ENDORSED TO HEATHER REYES.
[2018-12-12 21:15] VITALS: BP 171/90
[2018-12-12 21:57] VITALS: BP 157/83
[2018-12-13] MEDS: LABETALOL HCL 5 MG/ML ML 20ML VIAL IV PRN (05:04)
[2018-12-13 05:25] VITALS: BP 150/92
[2018-12-13 09:00] VITALS: BP 154/69
[2018-12-13] MEDS: DOCUSATE SOD 100 MG CAP PO SCH ×2 (10:00→21:50)
[2018-12-13] MEDS: cefTRIAXone 1GM/50ML D5W 50 ML IV SCH (10:18)
[2018-12-13] MEDS: SOD CHL 0.45% WITH 20MEQ KCL 1,000 ML IV SCH (10:18)
[2018-12-13] MEDS: APIXABAN 5 MG TAB PO SCH (10:19)
[2018-12-13] MEDS: amLODIPine BESYLATE 5 MG TAB PO SCH (10:19)
[2018-12-13] MEDS: PANTOPRAZOLE 40 MG TAB PO SCH (10:20)
[2018-12-13] MEDS: FAMOTIDINE 20 MG TAB PO SCH (10:20)
[2018-12-13] MEDS: METOPROLOL TARTRATE 50 MG TAB PO SCH ×2 (10:20→21:51)
[2018-12-13 13:00] VITALS: BP 121/58
--- NOTE | 2018-12-13 13:08 | NUR ---
Pt is non-verbal and very agitated. Pt was able to luis carlos well to PROM exercises for bilat UE's. Pt demo'd increased tenderness to touch to bilat LE's, could not perform any PROM exercises for bilat LE's, patient starts to scream as if in pain, RN made aware Addendum: 12/13/18 at 1311 by Tashia Stallings PT Amended: Links added.
[2018-12-13 17:00] VITALS: BP 118/62
--- NOTE | 2018-12-13 20:00 | NUR ---
open note assumed care of pt. upon entering room pt awake and alert. septic tank servicer at bedside. pt on specialty mattress, on room air no distress noted. pt has bilat isabela boots on. pt responds to verbal prompts with incomprehensible sounds, however, she does nod and shake head "yes" or "no" appropriately. pt denied any pain at this time. pt has culp in place draining clear yellow. pt has preventative optifoam on sacrum clean dry intact. pt bed locked, low and 2x rails up. call light in reach, encouraged pt and sitter to call as needed. will round q1hr and prn.
[2018-12-13 22:00] VITALS: BP 143/78
[2018-12-14 05:13] VITALS: BP 143/97
[2018-12-14 05:32] LABS: Basophils # (auto) 0.1 uL; Basophils % (auto) 1.3 % (0.0-2.0); Eosinophils # (auto) 0.1 uL; Hematocrit 39.8 % (36.0-46.0); Hemoglobin 13.3 g/dL (12.2-16.2); Lymphocytes # (auto) 1.5 uL; Lymphocytes % (auto) 21.4 % (10.0-50.0); Mean Corpuscular Hemoglobin 28.5 pg (28.0-32.0); Mean Corpuscular Hgb Conc. 33.5 g/dL (32.0-36.0); Mean Corpuscular Volume 85.2 fL (80.0-100.0); Monocytes # (auto) 0.7 uL; Monocytes % (auto) 10.5 % (0.0-12.0); Neutrophils # (auto) 4.5 uL; Neutrophils % (auto) 65.8 % (37.0-80.0); Nucleated Red Blood Cells % 0.1 %; Platelet Count (auto) 212 10^3/uL (140-450); Red Blood Cells 4.67 10^6/uL (4.0-5.20); White Blood Cell 6.9 10^3/uL (4.4-10.8)
[2018-12-14 05:34] LABS: Alanine Aminotransferase 6 U/L (13-56); Albumin 2.6 g/dL (3.4-5.0); Anion Gap 8 (5-15); Aspartate Aminotransferase 10 U/L (15-37); BUN/Creatinine Ratio 19.1; Blood Urea Nitrogen 9 mg/dL (7-18); Calcium 8.7 mg/dL (8.5-10.1); Carbon Dioxide 23 mmol/L (21-32); Chloride 104 mmol/L (98-107); GFR African American 165 mL/min; GFR Non-African American 136 mL/min; Glucose 97 mg/dL (74-106); Potassium 4.1 mmol/L (3.5-5.1); Sodium 135 mmol/L (136-145)
[2018-12-14 05:36] LABS: Alkaline Phosphatase 62 U/L (45-117); Bilirubin, Total 0.5 mg/dL (0.2-1.0); Total Protein 7.5 g/dL (6.4-8.2)
--- NOTE | 2018-12-14 07:29 | NUR ---
open note assumed care of pt from nightshift rn. upon entering room pt asleep verbally arousable and awake and alert. optical instrument assembler at bedside. pt on specialty mattress, on room air no distress noted. pt has bilateral isabela boots on. pt responds to verbal prompts with incomprehensible sounds, however, she does nod and shake head "yes" or "no" appropriately. pt denied any pain at this time. pt has culp in place draining clear yellow. pt has preventative optifoam on sacrum clean dry intact. pt bed locked, low and 2x rails up. call light in reach, encouraged pt and sitter to call as needed. will round q1hr and prn.
[2018-12-14 09:00] VITALS: BP 161/80
[2018-12-14] MEDS: SOD CHL 0.45% WITH 20MEQ KCL 1,000 ML IV SCH (10:06)
[2018-12-14] MEDS: cefTRIAXone 1GM/50ML D5W 50 ML IV SCH (10:06)
[2018-12-14] MEDS: APIXABAN 5 MG TAB PO SCH (10:06)
[2018-12-14] MEDS: DOCUSATE SOD 100 MG CAP PO SCH ×2 (10:06→22:00)
[2018-12-14] MEDS: amLODIPine BESYLATE 5 MG TAB PO SCH (10:07)
[2018-12-14] MEDS: FAMOTIDINE 20 MG TAB PO SCH (10:07)
[2018-12-14] MEDS: METOPROLOL TARTRATE 50 MG TAB PO SCH ×2 (10:07→21:34)
[2018-12-14] MEDS: PANTOPRAZOLE 40 MG TAB PO SCH (10:07)
[2018-12-14 13:00] VITALS: BP 143/74
--- NOTE | 2018-12-14 15:10 | NUR ---
MD HUNTER ROUNDED ON PATIENT NO NEW ORDERS NOTED.
--- NOTE | 2018-12-14 15:25 | NUR ---
rounded on pt noted left forearm infiltrated pt combative and agitated while removing iv. will attempt reinsertion later md aware of no iv status
[2018-12-14 17:00] VITALS: BP 155/83
[2018-12-14] MEDS: Ensure HIGH Protein Chocolate 8oz Bottle PO SCH (18:00)
--- NOTE | 2018-12-14 18:36 | NUR ---
x2 attempts to reinsert an iv noted unsuccessful will indorse to nightshift
--- NOTE | 2018-12-14 19:35 | NUR ---
Opening Shift Note Assumed care of patient, easily arousable, aphasic and not in distress. Calvert patent and draining to urine bag. Sitter at bedside. Turned to her side and every 2 hours, bed in lowest and locked position, bed alarm on, will continue to monitor for changes Q1hr and PRN.
--- NOTE | 2018-12-14 20:45 | NUR ---
Attempted to put an IV 3x but failed at this time, will try again later
[2018-12-14 22:12] VITALS: BP 167/82
[2018-12-14 23:30] VITALS: BP 150/83
[2018-12-15] MEDS: SOD CHL 0.45% WITH 20MEQ KCL 1,000 ML IV SCH ×2 (00:30→20:30)
--- NOTE | 2018-12-15 06:00 | NUR ---
IV insertion IV access obtained, via clean sterile technique by inserting 22 gauge catheter at [facility] by [facility]. IV secured properly. No trauma to site. Patient tolerated well. NOTE: []
[2018-12-15 06:03] VITALS: BP 154/75
[2018-12-15 07:31] LABS: Basophils # (auto) 0 uL; Basophils % (auto) 0.9 % (0.0-2.0); Eosinophils # (auto) 0 uL; Eosinophils % (auto) 0.9 % (0.0-7.0); Hematocrit 41.6 % (36.0-46.0); Hemoglobin 13.9 g/dL (12.2-16.2); Lymphocytes # (auto) 0.7 uL; Lymphocytes % (auto) 17.4 % (10.0-50.0); Mean Corpuscular Hemoglobin 28.8 pg (28.0-32.0); Mean Corpuscular Hgb Conc. 33.4 g/dL (32.0-36.0); Mean Corpuscular Volume 86.1 fL (80.0-100.0); Monocytes # (auto) 0.5 uL; Monocytes % (auto) 11.6 % (0.0-12.0); Neutrophils # (auto) 2.8 uL; Neutrophils % (auto) 69.2 % (37.0-80.0); Nucleated Red Blood Cells % 0.2 %; Platelet Count (auto) 246 10^3/uL (140-450); Red Blood Cells 4.83 10^6/uL (4.0-5.20); Red Cell Distribution Width 14.9 % (11.8-14.3)
--- NOTE | 2018-12-15 07:32 | NUR ---
Opening Shift Note Assumed care of patient, awake and alert sitter at bedside. No S/S of distress/SOB or pain. Instructed on POC and to call for assist PRN, will continue to monitor for changes Q1hr and PRN. Bed in low position and call light within reach
[2018-12-15 07:44] LABS: BUN/Creatinine Ratio 16.7; Calcium 9.4 mg/dL (8.5-10.1); Potassium 3.8 mmol/L (3.5-5.1)
[2018-12-15 09:00] VITALS: BP 140/81
[2018-12-15] MEDS: DOCUSATE SOD 100 MG CAP PO SCH ×2 (09:01→22:31)
[2018-12-15] MEDS: cefTRIAXone 1GM/50ML D5W 50 ML IV SCH (09:01)
[2018-12-15] MEDS: METOPROLOL TARTRATE 50 MG TAB PO SCH ×2 (09:02→22:00)
[2018-12-15] MEDS: PANTOPRAZOLE 40 MG TAB PO SCH (09:02)
[2018-12-15] MEDS: amLODIPine BESYLATE 5 MG TAB PO SCH (09:02)
[2018-12-15] MEDS: FAMOTIDINE 20 MG TAB PO SCH (09:02)
[2018-12-15] MEDS: Ensure HIGH Protein Chocolate 8oz Bottle PO SCH ×3 (09:03→18:00)
[2018-12-15] MEDS: APIXABAN 5 MG TAB PO SCH (09:03)
--- NOTE | 2018-12-15 12:07 | NUR ---
Nutrition Follow-up Notes Wt.:78.1 kg Pt was sleeping with no family by bedside. per pt records pt aphasic. pt is currently on pureed diet with ensure HP tid with inadequate PO of < 50% x 5 per RN doc Est. Needs: 1450 kcal to 1750 kcal (25-30 kcal/kgBW), 59 gms to 71 gms pro (1.0-1.2 gms/kgBW). Will continue to monitor pertinent labs and reassess nutrient need prn Labs: GLU 123 H, ALB 2.6 L Skin: Beto scale 12, high risk, skin intact per sitecore developer. GI: Pt has no BM reported per sitecore developer. PES: Altered nutrition related lab values r/t current/chronic medical condition aeb hyperglycemia, hyperchloremia, elev. ALP and severe hypoalbuminemia Increased nutrient needs rt current chronic medical condition aeb Will continue to monitor PO intake, skin status, pertinent labs and weight trend. F/u in 3 to 5 days. Rec.: 1.) Continue close supervision and feeding assistance prn during meals. 2.) Refer pt's family to CDE/RD for further nutrition educ. and weight monitoring upon discharge. 3.) Continue current plan of care.
[2018-12-15 13:00] VITALS: BP 138/91
--- NOTE | 2018-12-15 13:10 | NUR ---
md marinelli rounded on pt updated md on status that family needs to make a decision on placement of pt either home or snf vp digital marketing social media and crm already made aware
--- NOTE | 2018-12-15 13:43 | NUR ---
PT REFUSED PHYSICAL THERAPY TODAY. PT DOES NOT TALK BUT WHEN ATTEMPTED TO HELP MOVE ARM SHE WOULD PULL ARM AWAY. ERIC RUDOLPH WAS NOTIFIED. Addendum: 12/15/18 at 1344 by ANNA RODRIGUEZ PTT Amended: Links added.
--- NOTE | 2018-12-15 15:07 | NUR ---
Spoke to [facility] social worker regarding pt status of either home or SNF per ifrah daughter deya wants pt to go to SNF detention, [facility]
[2018-12-15 16:48] VITALS: BP 145/98
--- NOTE | 2018-12-15 19:30 | NUR ---
Opening Shift Note Assumed care of patient, awake. No S/S of distress/SOB or pain. Aphasic, uncooperative to care at this time, sitter at bedside. Per sitter, patient refused to eat her dinner. Instructed on POC and to call for assist PRN, patient just stared to primary RN. Bed in lowest and locked position, will continue to monitor for changes Q1hr and PRN.
[2018-12-15 23:18] VITALS: BP 160/95
[2018-12-16 05:51] LABS: BUN/Creatinine Ratio 16.2; Calcium 8.9 mg/dL (8.5-10.1)
[2018-12-16 05:55] LABS: Basophils # (auto) 0 uL; Basophils % (auto) 1.3 % (0.0-2.0); Eosinophils # (auto) 0.1 uL; Eosinophils % (auto) 2.4 % (0.0-7.0); Hematocrit 37.7 % (36.0-46.0); Hemoglobin 12.4 g/dL (12.2-16.2); Lymphocytes % (auto) 35.7 % (10.0-50.0); Mean Corpuscular Hemoglobin 28.3 pg (28.0-32.0); Mean Corpuscular Hgb Conc. 32.8 g/dL (32.0-36.0); Mean Corpuscular Volume 86.4 fL (80.0-100.0); Monocytes # (auto) 0.4 uL; Monocytes % (auto) 14.6 % (0.0-12.0); Neutrophils # (auto) 1.3 uL; Platelet Count (auto) 263 10^3/uL (140-450); Red Blood Cells 4.36 10^6/uL (4.0-5.20); Red Cell Distribution Width 14.9 % (11.8-14.3); White Blood Cell 2.9 10^3/uL (4.4-10.8)
[2018-12-16 06:19] VITALS: BP 157/72
[2018-12-16 06:32] VITALS: BP 150/79
[2018-12-16] MEDS: Ensure HIGH Protein Chocolate 8oz Bottle PO SCH ×2 (08:00→11:40)
[2018-12-16] MEDS: amLODIPine BESYLATE 5 MG TAB PO SCH (08:57)
[2018-12-16] MEDS: PANTOPRAZOLE 40 MG TAB PO SCH (08:57)
[2018-12-16] MEDS: DOCUSATE SOD 100 MG CAP PO SCH (08:57)
[2018-12-16] MEDS: APIXABAN 5 MG TAB PO SCH (08:57)
--- NOTE | 2018-12-16 08:57 | NUR ---
D/C Planning Per consult for SNF placement. Per Yina Pt daughter Ashley requested [facility]. Contacted [facility] Ph:) Fax:) Faxed medical records. Per Beverley from [facility] Pt has been accepted to room [address] Kelsey. Will set up transportation upon d/c day. Addendum: 12/16/18 at 0858 by RAMONA LEE Amended: Links added.
[2018-12-16] MEDS: cefTRIAXone 1GM/50ML D5W 50 ML IV SCH (08:58)
[2018-12-16] MEDS: METOPROLOL TARTRATE 50 MG TAB PO SCH (08:58)
[2018-12-16] MEDS: FAMOTIDINE 20 MG TAB PO SCH (08:58)
[2018-12-16 09:00] VITALS: BP 129/74
--- NOTE | 2018-12-16 13:30 | NUR ---
md marinelli rounded on pt aaiting discharge orders, per ok to transfer with culp cath in [facility] due to pt imobility
--- NOTE | 2018-12-16 14:19 | NUR ---
D/C Planning Contacted [facility] Ph:) spoke to Oh. Advised Oh from [facility] to arrange transportation via [facility]. Per Oh from [facility] pickle sorter time will be between 17:00-18:00. Informed ERIC Jo.
--- NOTE | 2018-12-16 16:50 | NUR ---
[facility] HERE TO [facility] PT TRANSPORT TO [facility] PT AWAKE ALERT CONFUSED NON VERBAL NO RESPIRATORY DISTRESS NOTED
--- NOTE | 2018-12-16 16:51 | NUR ---
REPORT CALLED TO [facility] GAVE REPORT [id number]
== END 2018-12-16 16:56 | DRG 304 ==
LOC: ER 08:00 → EDBD 08:00 → TELE 08:01 → TELE-WESTW 21:02
PROVIDERS: ADMIT Nurse Practitioner Acute Care; ATTEND Internal Medicine
DX: I16.9 Hypertensive crisis, unspecified (principal); N17.0 Acute kidney failure with tubular necrosis; D68.59 Other primary thrombophilia; I48.92 Unspecified atrial flutter; I69.351 Hemiplegia and hemiparesis following cerebral infarction affecting right dominant side; N10 Acute pyelonephritis; I10 Essential (primary) hypertension; R13.10 Dysphagia, unspecified; I48.0 Paroxysmal atrial fibrillation; E11.21 Type 2 diabetes mellitus with diabetic nephropathy; E11.22 Type 2 diabetes mellitus with diabetic chronic kidney disease; N18.9 Chronic kidney disease, unspecified; K21.9 Gastro-esophageal reflux disease without esophagitis; I12.9 Hypertensive chronic kidney disease with stage 1 through stage 4 chronic kidney disease, or unspecified chronic kidney disease; G47.00 Insomnia, unspecified; I69.320 Aphasia following cerebral infarction; Z79.84 Long term (current) use of oral hypoglycemic drugs; Z79.01 Long term (current) use of anticoagulants; Z80.3 Family history of malignant neoplasm of breast; Z82.49 Family history of ischemic heart disease and other diseases of the circulatory system; Z87.11 Personal history of peptic ulcer disease; Z86.711 Personal history of pulmonary embolism
CPT/HCPCS: 36415; 51702; 70450; 71046; 80048; 80053; 81001; 83735; 84443; 84484; 85025; 85610; 85730; 87086; 92610; 93005; 94761; 96361; 96365; 96375; 97110; 97116; 97163; 97530; G0378; J0696